=== PATIENT | male | born 1950 | race Caucasian/White ===

== ENCOUNTER 2018-02-04 22:45 | Emergency (ER) | payer OTHER, SELFPAY ==
[~2018-02-04] VITALS: Ht 177.8 cm; Wt 67.5 kg
[2018-02-04 22:48] VITALS: BP 128/81
[2018-02-05] MEDS ORDERED: DIPH,PERTUSS(ACELL),TET VAC/PF 0.5 ML IM-VACC ONE ×2 (00:30→00:32)
[2018-02-05] MEDS ORDERED: CEPHALEXIN 500 MG CAPSULE ONE (01:29)
[2018-02-05] MEDS ORDERED: SULFAMETH./TRIMETHOPRIM DS 800MG/160MG TABLET ONE (01:29)
[2018-02-05] MEDS ORDERED: CEPHALEXIN 500 MG CAPSULE PO ONE (01:30)
[2018-02-05] MEDS ORDERED: SULFAMETH./TRIMETHOPRIM DS 800MG/160MG TABLET PO ONE (01:30)
[2018-02-05] MEDS ORDERED: BACITRACIN ZINC OINT 500U/GM, 0.9 GM ONE (01:37)
== END 2018-02-05 01:44 | disposition home or self-care (01) ==
LOC: ED 23:59
DX: L03.113 Cellulitis of right upper limb (principal); L02.413 Cutaneous abscess of right upper limb; I25.2 Old myocardial infarction
CPT/HCPCS: 90471; 90715; 99284